=== PATIENT | male | born 1995 | race Caucasian/White ===

== ENCOUNTER 2016-06-22 07:04 | Emergency (ER) | payer OTHER ==
[~2016-06-22] VITALS: Ht 172.7 cm; Wt 68.0 kg
[~2016-06-22 07:04] MED LIST: ALBU2.5I; DAYQLIQ
[2016-06-22 07:06] VITALS: BP 141/94; PULSE 70; RESP 14; TEMP 97.9; O2SAT 98
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
[2016-06-22] MEDS ORDERED: ORPHENADRINE INJ 60 MG/2 ML AMP IM ONE (07:30)
[2016-06-22] MEDS ORDERED: KETOROLAC TROMETHAMINE 60 MG/2 ML (IM) VIAL IM ONE (07:30)
[2016-06-22] MEDS ORDERED: IBUP800T23 PO (07:32)
[2016-06-22] MEDS ORDERED: CYCL1TAB29 PO (07:32)
[2016-06-22] MEDS ORDERED: VENTAER INH (07:42)
== END 2016-06-22 08:49 | disposition home or self-care (01) ==
LOC: NEPB 07:04
DX: S16.1XXA Strain of muscle, fascia and tendon at neck level, initial encounter (principal); R51 Headache; M25.511 Pain in right shoulder; Z87.09 Personal history of other diseases of the respiratory system; Z72.0 Tobacco use; V89.2XXA Person injured in unspecified motor-vehicle accident, traffic, initial encounter
CPT/HCPCS: 96372; 99283; J1885; J2360